=== PATIENT | male | born 1975 | race Caucasian/White ===

== ENCOUNTER 2019-04-14 23:11 | Observation (INO) ==
--- NOTE | 2019-04-15 01:19 | ERNOTE ---
Abdominal HPI - Narrative Date of Service: 04/15/19 - General Chief Complaint: Abdominal Pain Time Seen by Provider: 04/15/19 00:05 - Immun/Allergies/Home Medications Immunizatons: IMMUNIZATION HX Immunizations Up to Date No History of Influenza Vaccine No Hx Pneumococcal Vaccination No Allergies/Adverse Reactions: Allergies No Known Allergies Allergy (Verified 04/13/19 14:56) Home Medications: HOME MEDICATIONS cetirizine 10 mg capsule 10 mg PO DAILY 10/09/18 [Last Taken Unknown] hydrocodone 5 mg-acetaminophen 325 mg tablet 1 tab PO Q4H #20 tab 04/10/19 [Last Taken Unknown] cefdinir 300 mg capsule 300 mg PO BID 10 Days #20 cap 04/13/19 [Last Taken Unknown] - History of Present Illness Narrative: Patient is a 44 years old male who presented with a fever, and increased abdominal pain, on day 4 post laparoscopic cholecystectomy. Patient reports starting having a fever on day , he was seen by his primary on Tuesday who diagnosed him with a sinusitis and started and on Cefdinir. Patient reports having more fever today, and abdominal pain. He also stopped taking his opioid pain medication yesterday, reporting I do not like the way they make me feel. He reports his fever being between 100.5 and 102 Fahrenheit. Date (Duration): 04/13/19 Timing: constant, getting worse Quality: moderate Activities at Onset: none Review of Systems - Review of Systems Constitutional: Present: fever EYE: Absent: eye pain ENT: Absent: ear pain Respiratory: Absent: shortness of breath Cardiology: Absent: chest pain Gastrointestinal/Abdominal: Present: abdominal pain. Absent: nausea, vomiting Genitourinary: Absent: dysuria Musculoskeletal: Absent: back pain Skin: Absent: rash All Other Systems: All systems neg except as marked Medical History (Last Reviewed 04/15/19 @ 04:31 by Cydney Neff RN) Prostatitis (Resolved) Onset Date: ~1999 Epididymitis (Resolved) Onset Date: ~2005 left Surgical History: Surgical History (Last Reviewed 04/15/19 @ 04:31 by Cydney Neff RN) History of hand surgery (Resolved) Onset Date: ~1995 right History of laparoscopic cholecystectomy Onset Date: 04/10/19 Josr Status post epidural steroid injection Onset Date: 12/02/09 L4-5 Family History: Family History (Last Reviewed 04/15/19 @ 04:31 by Cydney Neff RN) Father Cancer bladder ca-dx age 70 Hypertension Mother Diabetes Brother Alive and well 2 brothers Sister History of cholecystectomy 2 sisters Alive and well 1 sister Grandmother Cancer maternal-breast ca-dx age 70's Social History: (Last Reviewed 04/15/19 @ 04:32 by Cydney Neff RN) Social History: long-term: No Marital status: household members: spouse, children number of children: 2 current occupational status: employed current occupation: straight truck driver Highest education level completed: high school graduate Sexually Active: Yes Service: No Tobacco: Smoking Status: Never smoker Alcohol: alcohol intake: current alcohol intake frequency: holiday/special occasion Substance Use: substance use type: does not use Dietary Habits: caffeine: Yes Exercise: Physical activity functional status: normal ROM and activity frequency: does not exercise Personal Safety: victim of physical abuse: No victim of emotional abuse: No Physical Exam - Physical Exam General Appearance: Present: alert, mild distress Head Exam: Present: normal inspection Eye Exam: Normal inspection: bilateral Ears, Nose, Throat: Present: normal ENT inspection Neck: Present: normal inspection Respiratory: Present: no respiratory distress Cardiovascular/Chest: Present: regular rate, rhythm Peripheral Pulses: N=norm/S=strong/W=weak/B=bound/A=absent: Radial (R): Normal, Radial (L): Normal, Dorsalis-pedis (R): Normal, Dorsalis-pedis (L): Normal Gastrointestinal/Abdominal: Present: normal bowel sounds, other - pain in the right upper quadrant and flank Back Exam: Present: normal inspection Extremity Exam: Present: normal inspection Neurological Exam: Present: alert, oriented, normal mood/affect, 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 - Vital Signs Patient's Vital Signs:: I have reviewed the patient's vital signs. Vital Signs: Vital Signs 04/14/19 23:43 Temperature 38.3 C H Pulse Rate 128 H Respiratory Rate 16 Blood Pressure 125/77 O2 Sat by Pulse Oximetry 98 - Progress/Reassessment Chief Complaint: Abdominal Pain Progress Note-Subjective: 04/15/19 02:00 - CT abdo/pelvis result discussed with patient and which raised concern for hemoperitoneum and acute subacute bleeding in gallbladder fossa. I informed them I will contact the surgeon health information technician and he will need to be admitted to hospital, their questions were answered. Ordered a dose of Zosyn 3.375 mg to be given 04/15/19 02:12 - case discussed with Dr Linares, surgeon, he will come to see patient in the ED Plan - Plan Plan: Case discussed with Dr Linares, who came to see patient in the ED, and admitted him to the floor Departure Clinical Impression: Postoperative fever, Leukocytosis, Abdominal pain - Departure Disposition: Still a patient Condition: Fair
[2019-04-15 02:03] LABS: Mean Cell Volume 92.6 fl (78-100); Mean Corpuscular Hemoglobin 30.9 pg (27-31); Mean Corpuscular Hgb Conc 33.3 g/dl (32-36); Mean Platelet Volume 9.3 fl (8-11.3); Platelet Count 317 K/mm3 (150-450); Red Blood Count 3.24 M/mm3 (4.7-6.0); Red Cell Distribution Width 12.7 % (11.5-14.0); White Blood Count 16.9 K/mm3 (4.0-10.5)
[2019-04-15 02:08] LABS: Total Cells Counted 100
[2019-04-15] MEDS ORDERED: PIPERACILLIN SODIUM/TAZOBACTAM 3.375 GM in DEXTROSE 5 % IN WATER 100 ML IV ONE ×2 (02:12)
[2019-04-15 02:15] LABS: Band 8 % (0-2.0); Dohle Bodies 2+; Immature Granulocyte 4 (0-1); Lymphocyte 6 % (20-51); Monocyte 7 % (0-9); Neutrophil 75 % (42-75); Neutrophil # 12.7 K/mm3 (1.3-6.0); Platelet Estimate Normal (NORMAL); Toxic Granulation 1+
[2019-04-15 02:16] LABS: Albumin * 3.6 gm/dl (3.4-5.0); Anion Gap 13.3 mmol/L (6.8-13.8); BUN/Creatinine Ratio 13.8 (9.0-21.6); Ca. Corrected For Albumin 8.7 mg/dL (8.4-10.2); Calcium * 8.7 mg/dL (7.9-10.9); Carbon Dioxide 25.9 mmol/L (24-32.6); Potassium 4.2 mmol/L (3.4-4.6); Total Protein 7.6 gm/dL (6.2-8.2)
[2019-04-15] MEDS ORDERED: HYDROmorphone HCL 1 MG/ML DISP.SYRIN IV ONE (03:30)
[2019-04-15] MEDS: RINGER'S SOLUTION,LACTATED 1,000 ML IV PRN (03:50)
[2019-04-15] MEDS: HYDROcodone/ACETAMINOPHEN 1 EACH TABLET PO SCH ×6 (06:34→23:21)
--- NOTE | 2019-04-15 09:39 | HP ---
Chief Complaint - Chief Complaint Date of Service: 04/15/19 Time of Service: 03:00 - Patient was initially seen in the ER Chief Complaint: Abdominal pain and fever History of Present Illness: He underwent ambulatory laparoscopic cholecystectomy on 04/10/2019 for cholelithiasis and cholecystitis. He contacted the office on 04/12/2019 complaining of fever and some sinus drainage. He was instructed to take ibuprofen and call if there are worsening symptoms. He saw Dr. Catalan on 04/13/2019 complaining of sinus drainage and sinus pain. Labs were drawn, he was started on Ceftin ear, and the patient was told to present to the ER if worsening of symptoms. He states today he has had some pain in the right side of the abdomen. It hurts in the epigastrium right upper quadrant to take a deep breath. His upper midline incision hurts when he coughs. His main complaint however is a sore throat. His temperature has been 101 at home. He has not been dizzy or lightheaded His preoperative hemoglobin was 16.1, on 04 13 it was 9.5 and today is 10. His white blood cell count is elevated--- 13 on 819 and 16.9 today. Liver function studies and lactic acid are normal. His blood pressure is normal he is tachycardic Medical History (Last Reviewed 04/15/19 @ 10:02 by Raúl Linares MD) Prostatitis (Resolved) Onset Date: ~1999 Epididymitis (Resolved) Onset Date: ~2005 left Surgical History: Surgical History (Last Reviewed 04/15/19 @ 10:02 by Raúl Linares MD) History of hand surgery (Resolved) Onset Date: ~1995 right History of laparoscopic cholecystectomy Onset Date: 04/10/19 Josr Status post epidural steroid injection Onset Date: 12/02/09 L4-5 Family History: Family History (Last Reviewed 04/15/19 @ 10:02 by Raúl Linares MD) Father Cancer bladder ca-dx age 70 Hypertension Mother Diabetes Brother Alive and well 2 brothers Sister History of cholecystectomy 2 sisters Alive and well 1 sister Grandmother Cancer maternal-breast ca-dx age 70's Social History: (Last Reviewed 04/15/19 @ 10:02 by Raúl Linares MD) Social History: snf: No Marital status: household members: spouse, children number of children: 2 current occupational status: employed current occupation: trucking contractor Highest education level completed: high school graduate Sexually Active: Yes Service: No Tobacco: Smoking Status: Never smoker Alcohol: alcohol intake: current alcohol intake frequency: holiday/special occasion Substance Use: substance use type: does not use Dietary Habits: caffeine: Yes Exercise: Physical activity functional status: normal ROM and activity frequency: does not exercise Personal Safety: victim of physical abuse: No victim of emotional abuse: No Review Of Systems (GEN) - Review of Systems Generalized/Overall Review: Present: Fever, Fatigue. Absent: Chills EENTM: Present: Other - Sinus pain, drainage, sore throat Respiratory: Present: Other - Hurts to take a deep breath. Absent: Shortness of Breath Cardiac: Absent: Chest Pain, Palpitations, Syncope Abdominal: Present: Other - He did move his bowels today for the first time since surgery. Absent: Nausea, Vomiting Genitourinary: Present: No Symptoms Reported Musculoskeletal: Present: No Symptoms Reported Neurological: Present: No Symptoms Reported Skin: Present: No Symptoms Reported, Other - His reports he looks pale Immunizations: IMMUNIZATION HX Immunizations Up to Date No History of Influenza Vaccine No Hx Pneumococcal Vaccination No Allergies/Adverse Reactions: Allergies Allergy/AdvReac Type Severity Reaction Status Date / Time No Known Allergies Allergy Verified 04/13/19 14:56 Home Medications: HOME MEDICATIONS cetirizine 10 mg capsule 10 mg PO DAILY 10/09/18 [Last Taken Unknown] hydrocodone 5 mg-acetaminophen 325 mg tablet 1 tab PO Q4H #20 tab 04/10/19 [Last Taken Unknown] cefdinir 300 mg capsule 300 mg PO BID 10 Days #20 cap 04/13/19 [Last Taken Unknown] Exam - Exam Vital Signs: Vital Signs - Last Taken Temp 37.3 C 04/15/19 08:50 Pulse 98 04/15/19 08:50 Resp 20 04/15/19 08:50 BP 128/77 04/15/19 08:50 Pulse Ox 93 04/15/19 08:50 Comprehensive Narrative: 04/15/19 10:06 In the emergency room at 3 AM he appeared uncomfortable but could lay supine Constitutional: Present: Alert, Oriented x3, Cooperative, Well nourished, Mild distress ENT Exam: Present: normal ENT inspection, other - [place]atti 4 airway, posterior pharynx not visualized Eye Exam: bilateral eye: normal inspection Neck: Present: full range of motion, normal inspection Back Exam: Present: normal inspection Respiratory: Present: normal breath sounds, no respiratory distress, other - Decreased inspiratory effort Cardiovascular/Chest: Present: normal peripheral pulses, regular rate, rhythm, other Abdomen: Present: other - Slightly protuberant and tympanitic, however soft with no percussion tenderness. No discrete point tenderness or involuntary guarding. Incisions appear to be healing without erythema or ecchymoses /Rectal: Present: Exam deferred Extremity: Present: normal range of motion, normal inspection, no calf tenderness Skin Exam: Present: pallor Neurologic: Present: elevator service technician II-XII nml as tested, no motor/sensory deficits, oriented x 3 Appearance: Present: appropriate appearance, appropriate insight, no memory impairment Eye contact: Present: cooperative, good eye contact, normal speech Thoughts: Present: normal thought pattern Diagnostic Studies: Abnormal Lab Results 04/15/19 04/15/19 Range/Units 01:14 01:15 WBC 16.9 H D (4.0-10.5) K/mm3 RBC 3.24 L (4.7-6.0) M/mm3 Hgb 10.0 L (13.5-18.0) gm/dL Hct 30.0 L (42.0-52.0) % Band Neuts % (Manual) 8 H (0-2.0) % Lymphocytes % (Manual) 6 L (20-51) % Immature Granulocytes 4 H (0-1) Neutrophils # (Manual) 12.7 H (1.3-6.0) K/mm3 Lymphocytes # (Manual) 1.0 L (1.5-3.5) k/mm3 Monocytes # (Manual) 1.2 H (0.0-1.0) k/mm3 Random Glucose 143 H (70-110) mg/dL Laboratory Results WBC 16.9 K/mm3 (4.0-10.5) H D 04/15/19 01:15 RBC 3.24 M/mm3 (4.7-6.0) L 04/15/19 01:15 Hgb 10.0 gm/dL (13.5-18.0) L 04/15/19 01:15 Hct 30.0 % (42.0-52.0) L 04/15/19 01:15 MCV 92.6 fl (78-100) 04/15/19 01:15 MCH 30.9 pg (27-31) 04/15/19 01:15 MCHC 33.3 g/dl (32-36) 04/15/19 01:15 RDW 12.7 % (11.5-14.0) 04/15/19 01:15 Plt Count 317 K/mm3 (150-450) 04/15/19 01:15 MPV 9.3 fl (8-11.3) 04/15/19 01:15 Neutrophils % (Manual) 75 % (42-75) 04/15/19 01:15 Band Neuts % (Manual) 8 % (0-2.0) H 04/15/19 01:15 Lymphocytes % (Manual) 6 % (20-51) L 04/15/19 01:15 Monocytes % (Manual) 7 % (0-9) 04/15/19 01:15 Immature Granulocytes 4 (0-1) H 04/15/19 01:15 Neutrophils # (Manual) 12.7 K/mm3 (1.3-6.0) H 04/15/19 01:15 Lymphocytes # (Manual) 1.0 k/mm3 (1.5-3.5) L 04/15/19 01:15 Monocytes # (Manual) 1.2 k/mm3 (0.0-1.0) H 04/15/19 01:15 Toxic Granulation 1+ 04/15/19 01:15 Toxic Vacuolation 1+ 04/15/19 01:15 Dohle Bodies 2+ 04/15/19 01:15 Platelet Estimate Normal (NORMAL) 04/15/19 01:15 Sodium 134 mmol/L (132-142) 04/15/19 01:14 Plasma Sodium 135 mmol/L (130-142) 04/15/19 01:14 Potassium 4.2 mmol/L (3.4-4.6) 04/15/19 01:14 Chloride 99 mmol/L (97-106) 04/15/19 01:14 Carbon Dioxide 25.9 mmol/L (24-32.6) 04/15/19 01:14 Anion Gap 13.3 mmol/L (6.8-13.8) 04/15/19 01:14 BUN 17 mg/dL (6-23) 04/15/19 01:14 Creatinine 1.23 mg/dL (0.4-1.4) 04/15/19 01:14 Est GFR (Non-Af Amer) 68 mL/min (60-130) 04/15/19 01:14 BUN/Creatinine Ratio 13.8 (9.0-21.6) 04/15/19 01:14 Random Glucose 143 mg/dL (70-110) H 04/15/19 01:14 Lactic Acid, Venous 1.2 mmol/L (0.4-2.0) 04/15/19 01:14 Calcium 8.7 mg/dL (7.9-10.9) 04/15/19 01:14 Calcium Adj for Albumin 8.7 mg/dL (8.4-10.2) 04/15/19 01:14 Total Bilirubin 1.0 mg/dL (0.0-1.1) 04/15/19 01:14 AST 27 U/L (0-48) 04/15/19 01:14 ALT 55 U/L (19-67) 04/15/19 01:14 Alkaline Phosphatase 76 U/L (50-170) 04/15/19 01:14 Total Protein 7.6 gm/dL (6.2-8.2) 04/15/19 01:14 Albumin 3.6 gm/dl (3.4-5.0) 04/15/19 01:14 Lipase 103 U/L (73-393) 04/15/19 01:14 Procalcitonin 0.21 ng/mL (0.05-0.50) 04/15/19 01:18 Group A Strep Rapid Negative (NEGATIVE) 04/15/19 03:36 CT scan read at 0208 by real radiology showed residual pneumoperitoneum, hemoperitoneum, possible pseudoaneurysm in the (typo) color fossa CT scan over read report called to me at 9:26 AM again mentions hemoperitoneum but mentions sizable clot in the gallbladder fossa. There is again mention of the possible small pseudoaneurysm versus potential active bleeding source. Assessment/Plan - Assessment/Plan (1) Atelectasis of both lungs Assessment: CT scan shows significant atelectasis bilaterally. Patient is not taking a deep breath which may also account for his fever Need to aggressively treat this with incentive spirometry Problem: Acute (2) Postoperative fever Assessment: His white blood cell count is elevated however his lactic acid is normal. Will treat empirically with Zosyn. Blood cultures have been obtained Problem: Acute (3) Leukocytosis Assessment: White blood cell count has increased since 04/13/2019 Problem: Acute (4) Abdominal pain Assessment: He does not have peritoneal signs although he has blood in the abdomen which would cause increased abdominal discomfort. His main discomfort is sore throat and upper midline incision. Problem: Acute (5) Acute postoperative anemia due to greater than expected blood loss Assessment: His hemoglobin has dropped significantly although it did increase from 9.5 to 10 from 04/13/2019 to today, so whether there is ongoing bleeding is unclear. Will need to monitor his vital signs and repeat hemoglobin hematocrit with serial exams. Problem: Acute
[2019-04-15 09:41] LABS: Hematocrit 27.5 % (42.0-52.0); Hemoglobin 9.4 gm/dL (13.5-18.0); Mean Cell Volume 91.7 fl (78-100); Mean Corpuscular Hemoglobin 31.3 pg (27-31); Mean Corpuscular Hgb Conc 34.2 g/dl (32-36); Mean Platelet Volume 8.9 fl (8-11.3); Neutrophil # 10.5 K/mm3 (1.3-6.0); Neutrophil % 71.5 % (42-75.0); Platelet Count 288 K/mm3 (150-450); Red Cell Distribution Width 12.9 % (11.5-14.0); White Blood Count 14.7 K/mm3 (4.0-10.5)
[2019-04-15 10:03] LABS: Total Cells Counted 100
[2019-04-15] MEDS ORDERED: PIPERACILLIN SODIUM/TAZOBACTAM 2.25 GM VIAL IV SCH (10:15)
[2019-04-15] MEDS: PIPERACILLIN SODIUM/TAZOBACTAM 3.375 GM in DEXTROSE 5 % IN WATER 100 ML IV SCH ×4 (10:21→19:05)
[2019-04-15 10:24] LABS: Lymphocyte 20 % (20-51); Monocyte 12 % (0-9); Neutrophil 68 % (42-75); Platelet Estimate Normal (NORMAL)
[2019-04-15 10:25] LABS: RBC Morphology Normal (NORMAL)
--- NOTE | 2019-04-15 10:57 | PN ---
Dictated Progress Note - Date and Time Seen: Date: 04/15/19 Time: 10:53 - Progress Note Narrative: Vital Signs - Last Taken Temp 37.1 C 04/15/19 10:38 Pulse 95 04/15/19 10:38 Resp 20 04/15/19 10:38 BP 134/80 04/15/19 10:38 Pulse Ox 93 04/15/19 08:50 Abnormal/Pending Laboratory Last 24 HRS 04/15/19 04/15/19 04/15/19 09:36 01:15 01:14 WBC 14.7 H 16.9 H D RBC 3.00 L 3.24 L Hgb 9.4 L 10.0 L Hct 27.5 L 30.0 L MCH 31.3 H Immature Gran % (Auto) 0.80 H Immature Gran # (Auto) 0.11 H Band Neuts % (Manual) 8 H Lymphocytes % 14.3 L Lymphocytes % (Manual) 6 L Monocytes % 13.0 H Monocytes % (Manual) 12 H Immature Granulocytes 4 H Neutrophils # 10.5 H Neutrophils # (Manual) 10.0 H 12.7 H Lymphocytes # (Manual) 1.0 L Monocytes # 1.9 H Monocytes # (Manual) 1.8 H 1.2 H Random Glucose 143 H Repeat Hgb is 9.4 and VS are stable/improved. WBC to 14.7 Discussed at length with the patient and his . Options would be continued observation as major hgb drop occurred 01/08-01/11 or exploration to evacuated the clot and assess for bleeding, which could lead to further bleeding. They would prefer observation unless the situation changes. Will repeat hgb/hct. Stress incentive spirometry, continue Zosyn, SCD's, clear liquids for now.
[2019-04-15 14:40] LABS: Hematocrit 27.6 % (42.0-52.0); Hemoglobin 9.2 gm/dL (13.5-18.0)
--- NOTE | 2019-04-15 16:30 | PN ---
Dictated Progress Note - Date and Time Seen: Date: 04/15/19 Time: 16:28 - Progress Note Narrative: Vital Signs - Last Taken Temp 37.2 C 04/15/19 14:22 Pulse 83 04/15/19 14:22 Resp 18 04/15/19 14:22 BP 115/70 04/15/19 14:22 Pulse Ox 93 04/15/19 08:50 Abnormal/Pending Laboratory Last 24 HRS 04/15/19 04/15/19 04/15/19 14:30 09:36 01:15 WBC 14.7 H 16.9 H D RBC 3.00 L 3.24 L Hgb 9.2 L 9.4 L 10.0 L Hct 27.6 L 27.5 L 30.0 L MCH 31.3 H Immature Gran % (Auto) 0.80 H Immature Gran # (Auto) 0.11 H Band Neuts % (Manual) 8 H Lymphocytes % 14.3 L Lymphocytes % (Manual) 6 L Monocytes % 13.0 H Monocytes % (Manual) 12 H Immature Granulocytes 4 H Neutrophils # 10.5 H Neutrophils # (Manual) 10.0 H 12.7 H Lymphocytes # (Manual) 1.0 L Monocytes # 1.9 H Monocytes # (Manual) 1.8 H 1.2 H Random Glucose 04/15/19 01:14 WBC RBC Hgb Hct MCH Immature Gran % (Auto) Immature Gran # (Auto) Band Neuts % (Manual) Lymphocytes % Lymphocytes % (Manual) Monocytes % Monocytes % (Manual) Immature Granulocytes Neutrophils # Neutrophils # (Manual) Lymphocytes # (Manual) Monocytes # Monocytes # (Manual) Random Glucose 143 H VS have remained normal. He feels "better". Has been up, voided and is passing gas and has stooled. Still soft and minimally tender without peritoneal signs. Hgb 9.2 Discussed with patient. Will continue observation overnight with repeat CBC in AM
[2019-04-16] MEDS: HYDROcodone/ACETAMINOPHEN 1 EACH TABLET PO SCH ×3 (04:20→11:56)
[2019-04-16] MEDS: PIPERACILLIN SODIUM/TAZOBACTAM 3.375 GM in DEXTROSE 5 % IN WATER 100 ML IV SCH ×4 (04:21→10:21)
[2019-04-16 06:26] LABS: Hematocrit 26.8 % (42.0-52.0); Mean Cell Volume 93.1 fl (78-100); Mean Corpuscular Hemoglobin 31.3 pg (27-31); Mean Corpuscular Hgb Conc 33.6 g/dl (32-36); Mean Platelet Volume 9.5 fl (8-11.3); Neutrophil # 7.3 K/mm3 (1.3-6.0); Neutrophil % 66.4 % (42-75.0); Platelet Count 280 K/mm3 (150-450); Red Blood Count 2.88 M/mm3 (4.7-6.0); Red Cell Distribution Width 12.7 % (11.5-14.0)
--- NOTE | 2019-04-16 08:03 | PN ---
Dictated Progress Note - Date and Time Seen: Date: 04/16/19 Time: 08:01 - Progress Note Narrative: Vital Signs - Last Taken Temp 36.8 C 04/16/19 06:58 Pulse 77 04/16/19 06:58 Resp 20 04/16/19 06:58 BP 116/69 04/16/19 06:58 Pulse Ox 94 04/16/19 06:58 Abnormal/Pending Laboratory Last 24 HRS 04/16/19 04/15/19 04/15/19 06:16 14:30 09:36 WBC 11.0 H D 14.7 H RBC 2.88 L 3.00 L Hgb 9.0 L 9.2 L 9.4 L Hct 26.8 L 27.6 L 27.5 L MCH 31.3 H 31.3 H Immature Gran % (Auto) 0.80 H 0.80 H Immature Gran # (Auto) 0.09 H 0.11 H Lymphocytes % 17.3 L 14.3 L Monocytes % 13.0 H 13.0 H Monocytes % (Manual) 12 H Neutrophils # 7.3 H 10.5 H Neutrophils # (Manual) 10.0 H Monocytes # 1.4 H 1.9 H Monocytes # (Manual) 1.8 H Culture 04/15/19 04:00 Blood Culture - Preliminary Blood NO GROWTH 24 HOURS 04/15/19 02:00 Blood Culture - Preliminary Blood NO GROWTH 24 HOURS VS have remained normal. WBC down to 11,000 and Hgb 9.0 He feels much better. Minimal pain right side and upper port site. Sore throat is worst. Encourage OOB and pulmonary toilet Will discuss with Dr Ovalles
[2019-04-16] MEDS: RINGER'S SOLUTION,LACTATED 1,000 ML IV PRN (10:56)
--- NOTE | 2019-04-16 11:11 | DS ---
Date of Discharge:: 04/16/19 Description of Stay: Patient was admitted through the emergency room for a fever. He has leukocytosis. This has improved. His hemoglobin has remained stable. He had a CT scan which showed a blood clot in the hepatic fossa. His pain is improving. His vital signs are stable. He feels ready to discharge. Procedures Performed: none Results and Findings: Pending Mircobiology Results 04/15/19 04:00 Blood Blood Culture - Preliminary NO GROWTH 24 HOURS 04/15/19 02:00 Blood Blood Culture - Preliminary NO GROWTH 24 HOURS Lab Pending Results 04/15/19 01:14: Sodium 134, Plasma Sodium 135, Potassium 4.2, Chloride 99, Carbon Dioxide 25.9, Anion Gap 13.3, BUN 17, Creatinine 1.23, Est GFR (Non-Af Amer) 68, BUN/Creatinine Ratio 13.8, Random Glucose 143 H, Calcium 8.7, Calcium Adj for Albumin 8.7, Total Bilirubin 1.0, AST 27, ALT 55, Alkaline Phosphatase 76, Total Protein 7.6, Albumin 3.6, Lipase 103 04/15/19 01:14: Lactic Acid, Venous 1.2 04/15/19 01:15: WBC 16.9 H D, RBC 3.24 L, Hgb 10.0 L, Hct 30.0 L, MCV 92.6, MCH 30.9, MCHC 33.3, RDW 12.7, Plt Count 317, MPV 9.3, Neutrophils % (Manual) 75, Band Neuts % (Manual) 8 H, Lymphocytes % (Manual) 6 L, Monocytes % (Manual) 7, Immature Granulocytes 4 H, Neutrophils # (Manual) 12.7 H, Lymphocytes # (Manual) 1.0 L, Monocytes # (Manual) 1.2 H, Toxic Granulation 1+, Toxic Vacuolation 1+, Dohle Bodies 2+, Platelet Estimate Normal 04/15/19 01:18: Procalcitonin 0.21 04/15/19 03:36: Group A Strep Rapid Negative 04/15/19 09:36: WBC 14.7 H, RBC 3.00 L, Hgb 9.4 L, Hct 27.5 L, MCV 91.7, MCH 31.3 H, MCHC 34.2, RDW 12.9, Plt Count 288, MPV 8.9, Immature Gran % (Auto) 0.80 H, Immature Gran # (Auto) 0.11 H, Neutrophils % 71.5, Neutrophils % (Manual) 68, Lymphocytes % 14.3 L, Lymphocytes % (Manual) 20, Monocytes % 13.0 H, Monocytes % (Manual) 12 H, Eosinophils % 0.3, Basophils % 0.1, Nucleated RBC % 0.0, Neutrophils # 10.5 H, Neutrophils # (Manual) 10.0 H, Lymphocytes # 2.10, Lymphocytes # (Manual) 2.9, Monocytes # 1.9 H, Monocytes # (Manual) 1.8 H, Eosinophils # 0.1, Absolute Basophils 0.0, Platelet Estimate Normal, RBC Morphology Normal 04/15/19 14:30: Hgb 9.2 L, Hct 27.6 L 04/16/19 06:16: WBC 11.0 H D, RBC 2.88 L, Hgb 9.0 L, Hct 26.8 L, MCV 93.1, MCH 31.3 H, MCHC 33.6, RDW 12.7, Plt Count 280, MPV 9.5, Immature Gran % (Auto) 0.80 H, Immature Gran # (Auto) 0.09 H, Neutrophils % 66.4, Lymphocytes % 17.3 L, Monocytes % 13.0 H, Eosinophils % 2.3, Basophils % 0.2, Nucleated RBC % 0.0, Neutrophils # 7.3 H, Lymphocytes # 1.91, Monocytes # 1.4 H, Eosinophils # 0.3, Absolute Basophils 0.0 Discharge Location: Home Disposition: Home self-care Condition: Stable Discharge Activity: Activity as tolerated Discharge Diet: General/regular food Referrals: Sharona Catalan MD [Primary Care Provider] - Complete Home Medications List: Complete Home Medication List: cetirizine 10 mg capsule 10 mg PO DAILY 10/09/18 hydrocodone 5 mg-acetaminophen 325 mg tablet 1 tab PO Q4H #20 tab 04/10/19 cefdinir 300 mg capsule 300 mg PO BID 10 Days #20 cap 04/13/19
[2019-04-16 13:41] VITALS: BP 109/66
== END 2019-04-16 13:40 | disposition home or self-care (01) ==
LOC: ER 23:11 → MS 23:11
PROVIDERS: ADMIT Surgery; ATTEND Surgery
CPT/HCPCS: 36415; 74177; 80053; 83605; 83690; 84145; 85014; 85018; 85025; 87040; 87081; 87430; 96365; 96366; 96367; 96375; 99285; G0378; Q9967